=== PATIENT | female | born 1985 | race Caucasian/White ===

== ENCOUNTER 2021-11-03 10:47 | Observation (INO) | payer SELFPAY ==
[2021-11-03] MEDS ORDERED: CLINDAMYCIN 900 MG/50 ML 50 ML IV ONE (11:58)
[2021-11-03] MEDS ORDERED: LIDOCAINE 1%-EPI 1:100000 20 ML MDV SUBQ STA (11:58)
[2021-11-03] MEDS ORDERED: DEXAMETHASONE 10 MG/ML VIAL IVP STA (11:58)
--- NOTE | 2021-11-03 11:59 | ED Physician Documentation ---
PD HPI HEENT - Stated complaint Stated Complaint: RT FACE PX/SWELLING - Chief complaint Chief Complaint: Heent - History obtained from History obtained from: Patient - Additional information Additional information: Otherwise healthy 36-year-old woman has been dealing with a tooth infection. Went to dentist late last week and was started on Augmentin on Tuesday. Now with increased swelling and the dentist were advised her to come to the emergency department she is had some low-grade fevers but controlled with Tylenol and ibuprofen. Review of Systems Ten Systems: 10 systems reviewed and negative Constitutional: reports: Fever Nose: denies: Rhinorrhea / runny nose Throat: reports: Dental pain / toothache. denies: Sore throat PD PAST MEDICAL HISTORY - Allergies Allergies/Adverse Reactions: Allergies Allergy/AdvReac Type Severity Reaction Status Date / Time No Known Drug Allergies Allergy Verified 11/03/21 10:55 PD ED PE NORMAL - Vitals Vital signs reviewed: Yes - General General: Alert and oriented X 3, No acute distress - HEENT HEENT: PERRL, EOMI, Other (She has moderate trismus, can only open the mouth about 3 cm between incisors. The right mandibular second molar appears to be the infected tooth with an old filling and a an apparent gingival abscess and overlying facial cellulitis. There is no sublingual edema) - Neck Neck: Supple, no meningeal sign, No bony TTP - Cardiac Cardiac: RRR, No murmur - Respiratory Respiratory: No respiratory distress, Clear bilaterally - Abdomen Abdomen: Soft, Non tender - Back Back: No CVA TTP, No spinal TTP - Derm Derm: Normal color, Warm and dry - Extremities Extremities: No edema, No calf tenderness / cord - Neuro Neuro: Alert and oriented X 3, Normal speech Results - Vitals Vitals: Vital Signs - 24 hr 11/03/21 11/03/21 11/03/21 10:55 10:58 16:53 Temperature 37.1 C 37.1 C Heart Rate 96 96 82 Respiratory 18 18 17 Rate Blood Pressure 148/73 H 148/73 H 145/80 H O2 Saturation 100 100 99 Oxygen O2 Source Room air - Labs Labs: Laboratory Tests 11/03/21 11/03/21 11/03/21 13:16 13:16 13:16 WBC 8.5 RBC 4.19 L Hgb 12.1 Hct 36.5 L MCV 87.1 MCH 28.9 MCHC 33.2 RDW 13.4 Plt Count 270 MPV 10.3 Neut # (Auto) 6.9 H Lymph # (Auto) 1.0 L Lamb # (Auto) 0.5 Eos # (Auto) 0.0 Baso # (Auto) 0.0 Absolute Nucleated RBC 0.00 Nucleated RBC % 0.0 PT 15.4 H INR 1.4 H VBG pH VBG pCO2 VBG pO2 VBG HCO3 VBG Total CO2 VBG O2 Saturation VBG Base Excess Sodium 138 Potassium 4.1 Chloride 104 Carbon Dioxide 24 Anion Gap 10.0 BUN 9 Creatinine 0.6 Estimated GFR (MDRD) 113 Glucose 112 H Calcium 9.2 Serum HCG, Qual 11/03/21 11/03/21 13:16 13:16 WBC RBC Hgb Hct MCV MCH MCHC RDW Plt Count MPV Neut # (Auto) Lymph # (Auto) Lamb # (Auto) Eos # (Auto) Baso # (Auto) Absolute Nucleated RBC Nucleated RBC % PT INR VBG pH 7.378 VBG pCO2 44.5 VBG pO2 53.3 H VBG HCO3 25.6 VBG Total CO2 27.0 VBG O2 Saturation 87.9 H VBG Base Excess 0.2 Sodium Potassium Chloride Carbon Dioxide Anion Gap BUN Creatinine Estimated GFR (MDRD) Glucose Calcium Serum HCG, Qual NEGATIVE - Rads (name of study) CT Neck Radiology: EMP read contemporaneously Procedures - Abscess I&D (location) Dental, R mandible Preparation: Lidocaine 1% Incision: Incised with scalpel, Other (no pus) PD MEDICAL DECISION MAKING - ED course ED course: 36-year-old woman presents with what looks like early Noman's angina with some submandibular swelling and significant trismus related to an infected molar on the right mandible. She is nontoxic. I attempted an incision and drainage which she tolerated well, but no pus was identified from the lateral gumline. I called OMFS, Dr. Antonio Dawn and he will come see the patient in the department. He requested a CT after seeing the patient. This was done, my initial wet read shows a very large submandibular abscess measuring approximately 4 x 2 x 2 cm with airway deviation. I spoke with Dr. Dawn again who confirmed the patient needs urgent surgery but unfortunately we are now on surgical divert and he cannot take the patient to the operating room so a search for bed is begun. CT Neck Centered on the superior portion the right submandibular gland, there is a 2.0 x 4.9 x 2.5 cm fluid collection which does extend anteriorly along the right submandibular duct. No evidence of obstructing calculus.. There is a suggestion of enhancing capsule, and the hypopharynx is displaced to the left, but patent. Right vallecular sinus is effaced. Adjacent mandibular cortex is intact. There are multiple adjacent reactive appearing lymph nodes measuring up to 1.4 cm in diameter. Subsequently notified by the [facility] that it is likely that this patient will not be able to find a bed for the next 2 to 3 days. Unfortunately this is unacceptable given her diagnosis. I called Dr. Dawn again and asked if there was something he could do at the bedside was procedural sedation. Since the operating room is closed, but he felt that there was nothing he could do at the bedside even with sedation. We discussed the issue, and at this point we will continue to look for a bed but he will be able to take her to the OR tomorrow after the OR opens again. I discussed this with the patient, she has been very stable over the last 6 hours or so and she feels like she is actually a little better than when she got here with regards to her voice and phonation. Spoke with Dr. Colón for admission at 5:12 PM. Departure - Departure Disposition: [facility] DC/[facility] Clinical Impression: Ludwigs angina Condition: Serious
[2021-11-03 13:22] LABS: BASOPHILS % (AUTO) 0.4 %; EOSINOPHILS % (AUTO) 0.5 %; HCT - HEMATOCRIT 36.5 % (37.0-47.0); HGB - HEMOGLOBIN 12.1 g/dL (12.0-16.0); LYMPHOCYTES % (AUTO) 11.6 %; MEAN CORPUSCULAR HEMOGLOBIN 28.9 pg (27.0-31.0); MEAN CORPUSCULAR HGB CONC 33.2 g/dL (32.0-36.0); MEAN CORPUSCULAR VOLUME 87.1 fL (81.0-99.0); MEAN PLATELET VOLUME 10.3 fL (7.9-10.8); MONOCYTES # (AUTO) 0.5 10^3/uL (0.0-1.0); MONOCYTES % (AUTO) 5.9 %; NEUTROPHILS # (AUTO) 6.9 10^3/uL (1.5-6.6); NEUTROPHILS % (AUTO) 81.1 %; PLT - PLATELET COUNT 270 10^3/uL (130-450); RED BLOOD COUNT 4.19 10^6/uL (4.20-5.40); RED CELL DISTRIBUTION WIDTH 13.4 % (12.0-15.0); WHITE BLOOD COUNT 8.5 x10^3/uL (4.8-10.8)
[2021-11-03 13:25] LABS: VBG PCO2 44.5 mmHg (41-51); VBG PH 7.378 (7.31-7.41)
[2021-11-03 13:26] LABS: VBG BASE EXCESS 0.2 mmol/L (-2 - +2); VBG HCO3 25.6 mmol/L (23-28); VBG OXYGEN SATURATION 87.9 % (60-80); VBG PO2 53.3 mmHg (25-47)
[2021-11-03 13:28] LABS: INR 1.4 (0.8-1.2); PT - PROTHROMBIN TIME 15.4 secs (9.9-12.6)
[2021-11-03 13:32] LABS: CALCIUM 9.2 mg/dL (8.5-10.3); CREATININE 0.6 mg/dL (0.4-1.0); POTASSIUM 4.1 mmol/L (3.5-5.0)
[2021-11-03] MEDS ORDERED: IOVERSOL 320 100 ML VIAL IVP ONE ×2 (14:39→15:09)
[2021-11-03] MEDS ORDERED: ONDANSETRON 4 MG/2 ML VIAL IVP STA (15:05)
[2021-11-03 15:33] LABS: HCG,QUALITATIVE BLOOD NEGATIVE
--- NOTE | 2021-11-03 16:21 | CT Report ---
PROCEDURE: CT neck with contrast INDICATIONS: Dental infection, question Noman's CONTRAST: IV CONTRAST: Optiray 320 ml: 100 PO CONTRAST: *NO PO CONTRAST TECHNIQUE: After the administration of intravenous contrast, 3.0 mm axial sections acquired from the sella to th e aortic arch. 3 mm thick coronal reformats were generated. For radiation dose reduction, the follo wing was used: automated exposure control, adjustment of mA and/or kV according to patient size. COMPARISON: None. FINDINGS: Image quality: Excellent. Lymph nodes: As below Vessels: Visualized vasculature appears patent. Neck spaces: As below. The oropharynx, nasopharynx, and pharynx demonstrate no mucosal lesions. The vocal cords, false vocal cords, pyriform sinuses, epiglottis, and tongue base all appear normal. Ext ramucosal spaces appear unremarkable. Glands: Centered on the superior portion the right submandibular gland, there is a 2.0 x 4.9 x 2.5 cm fluid collection which does extend anteriorly along the right submandibular duct. No evidence of obs tructing calculus.. There is a suggestion of enhancing capsule, and the hypopharynx is displaced to t he left, but patent. Right vallecular sinus is effaced. Adjacent mandibular cortex is intact. There a re multiple adjacent reactive appearing lymph nodes measuring up to 1.4 cm in diameter. Miscellaneous: Visualized brain and orbits appear normal. Lung apices appear clear. Superficial so ft tissues appear normal. Bones: No suspicious bony lesions. Visualized sinuses and mastoids appear unremarkable. IMPRESSION: 1. Right-sided soft tissue partially encapsulated fluid collection is most consistent with an infecte d ranula arising from the right submandibular gland. Local reactive adenopathy present. Adjacent ehsan ibular cortex and dentition intact. Reviewed by: Maykel Villarreal MD on 11/03/2021 3:19 PM AKDT Approved by: Maykel Villarreal MD on 11/03/2021 3:19 PM AKDT Station ID: [id number]
[2021-11-03] MEDS ORDERED: AMPICILLIN/SULBACTAM 3 GM in SODIUM CHLORIDE 0.9% MINIBAG 100 ML IV STA (16:48)
[2021-11-03] MEDS ORDERED: ONDANSETRON ODT 4 MG TABLET TL PRN (17:13)
[2021-11-03] MEDS ORDERED: SODIUM CHLORIDE FLUSH 0.9% 10 ML SYRINGE IVP PRN (17:13)
[2021-11-03] MEDS ORDERED: oxyCODONE 5 MG TABLET PO PRN (17:13)
[2021-11-03] MEDS ORDERED: HYDROmorphone 0.5 MG/0.5 ML SYRINGE IVP PRN (17:13)
--- NOTE | 2021-11-03 17:55 | HISTORY & PHYSICAL EXAMINATION ---
Chief Complaint - Chief Complaint Chief Complaint: facial swelling History of Present Illness - Admitted From Admitted From:: ED - History Obtained From Records Reviewed: Medical record History obtained from: patient - History of Present Illness HPI Comment/Other: A 36 year old patient with no significant medical history presents for facial swelling after a dental infection that began 6 days ago. The patient was eating when she felt her tooth crack (right lower molar, second from back). She was treated with antibiotics 4 days ago, but her face continued to swell. She reports swelling and pain that is worse on the right side and under her chin. She reports dysphagia, fever, chills, and cough due to throat irritation, with nausea and vomiting prior to the start of antibiotics. She has had a mostly liquid diet due to pain and difficulty swallowing and reports losing 7 lbs since the start of this event. She denies difficulty breathing. She has been using tylenol and ibuprofen for pain and fevers. 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 4 children, all healthy Living arrangement: At home Living Situation: With spouse/s.o. Social History Notes: Moved from [place] in January with . 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 No alcohol abuse or reactionational substance use. Never smoked. lives with and 5 kids (one child from 's prior marriage). Uninsured. - Substance History Use: Uses substance without health or social issues: NONE Abuse: Recurrent use of substance despite neg consequences: NONE Dependence: Experiences withdrawal or developed tolerances: NONE Meds/Allgy - Allergies Allergies/Adverse Reactions: Allergies Allergy/AdvReac Type Severity Reaction Status Date / Time No Known Drug Allergies Allergy Verified 11/03/21 10:55 Review of Systems - Constitutional Constitutional: reports: Fever, Chills, Poor appetite, Weight loss - Ears, Nose & Throat Ears, Nose & Throat: reports: Sore throat - Cardiovascular Cariovascular: reports: Irregular heart rate. denies: Chest pain - Respiratory Respiratory: reports: Cough. denies: Sputum production, Wheezing - Gastrointestinal Gastrointestinal: reports: Nausea, Vomiting. denies: Abdominal pain, Abdominal distention, Constipation, Diarrhea - Musculoskeletal Musculoskeletal: reports: Muscle aches - Integumentary Integumentary: denies: Rash - Neurological Neurological: denies: Headache - Other Findings Other Findings: All other ROS reviewed and negative. Prior Level of Functionality: Independent Exam - Vital Signs Reviewed Vital Signs: Yes Vital Signs: Vital Signs x48h Temp Pulse Resp BP Pulse Ox 11/03/21 16:53 82 17 145/80 H 99 11/03/21 10:58 37.1 C 96 18 148/73 H 100 11/03/21 10:55 37.1 C 96 18 148/73 H 100 - Physical Exam General Appearance: positive: No acute distress, Alert Eyes Bilateral: positive: Normal inspection, No lid inflammation, No scleral icterus Neck: positive: Lymphadenopathy (L), Other (Swelling around right jaw and neck without skin erythema. Cannot open mouth wide enough to visualize pharynx due to extensive swelling.) Respiratory: positive: No respiratory distress, Breath sounds nml Cardiovascular: positive: Regular rate & rhythm, No murmur, No gallop. negative: Irregularly irregular, Tachycardia, Bradycardia, JVD present, Systolic murmur, Diastolic murmur, Gallop/S4 Peripheral Pulses: positive: 2+ Abdomen: positive: Non-tender, No distention. negative: Guarding, Rebound Skin: positive: Color nml, No rash, Warm, Dry. negative: Diaphoresis Neurologic/Psychiatric: positive: Oriented x3, Mood/affect nml Conclusion/Plan - Problem List (1) Ludwigs angina Conclusion/Plan: 36 year old healthy female presents with Noamn angina secondary to a dental infection. The dental infection began 6 days ago after the patient felt her tooth crack while eating. She was treated with antibiotics 4 days ago, but the infection was not treated. She presents today with right sided facial and submandibular swelling. She reports pain, inflammation, dysphagia, fever, chills, nausea, and vomiting. She denies difficulty breathing and productive cough. A head/neck CT confirms Noman angina. On physical exam, there is exte nsive swelling of the face and neck. The patient does not appear to be in respiratory distress. The patient was notified that this is a surgical emergency, though there are no surgical services available due to staffing at this time. Multiple hospitals were contacted in an attempt to transfer care, but no beds are available. The patient was transferred from the emergency department to med/surg and will be sent to the operating room tomorrow morning. Oral maxillofacial surgery is prepared for the patient. IV ampicillin-sulbactam has been administered and the patient will be kept in an upright position through the night. She will be closely monitored for status changes but is currently stable. (2) Blood glucose elevated Conclusion/Plan: Patient has a mildly elevated blood glucose. She has no history of diabetes. Elevation may be due to physiologic stress related to infection. HbA1c will be checked in the morning. Glucose will be monitored during the hospital stay and the patient will be encouraged to follow up with primary care if blood glucose or A1c is elevated. - Lab Results Fish Bones: 11/03/21 13:16 11/03/21 13:16 - Diagnostic Imaging Results Diagnostic Imaging Results: positive: Final report reviewed Core Measures - Anticipated LOS I expect patient to be DC'd or transferred within 96 hours.: Yes - DVT/VTE - Prophylaxis VTE/DVT Device ordered at admit?: Yes
[2021-11-03] MEDS: SODIUM CHLORIDE 0.9% 1,000 ML IV SCH (18:14)
[2021-11-03] MEDS: ACETAMINOPHEN 325 MG TABLET PO PRN (18:42)
--- NOTE | 2021-11-03 21:54 | CONSULTATION NOTE ---
Referring Provider Name of Referring Provider:: Shant Herrera Consult Date: 11/03/21 Chief Complaint - Chief Complaint Chief Complaint: Throat swelling History of Present Illness - Admitted From Admitted From:: ER - History Obtained From History obtained from: Patient - History of Present Illness HPI Comment/Other: 36 yo F w/ 1 wk of progressive swelling of the R submandibular region. She has been on amoxicillin for three days and the swelling has continued to worsen. Today she came to the ER and OMFS was consulted for evaluation and management of her swelling. History - Past Medical History Cardiovascular: reports: None Respiratory: reports: None Neuro: reports: None Endocrine/Autoimmune: reports: None GI: reports: None SALVATIONIST: reports: Other () : reports: None HEENT: reports: None Psych: reports: None Musculoskeletal: reports: None Derm: reports: None - Past Surgical History General: reports: Appendectomy /SALVATIONIST: reports: Dilation and currettage, Oophrectomy - Family & Social History Family History: Mother: (Pt reports mother at 47 from heart failure due to poor overall health, bipolar), Father: Alive and Well Family History Comment/Other: 9 siblings, all healthy. 4 children, all healthy Living arrangement: At home Living Situation: With spouse/s.o. Social History Notes: Moved from [place] in January with . 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 No alcohol abuse or reactionational substance use. Never smoked. lives with and 5 kids (one child from 's prior marriage). Uninsured. - Substance History Use: Uses substance without health or social issues: NONE Abuse: Recurrent use of substance despite neg consequences: NONE Dependence: Experiences withdrawal or developed tolerances: NONE Meds/Allgy - Allergies Allergies/Adverse Reactions: Allergies Allergy/AdvReac Type Severity Reaction Status Date / Time No Known Drug Allergies Allergy Verified 11/03/21 10:55 Review of Systems - Constitutional Constitutional: reports: Fever (101.0 F) - Eyes Eyes: denies: Blurred vision - Ears, Nose & Throat Ears, Nose & Throat: denies: Ear pain, Hearing loss - Cardiovascular Cariovascular: denies: Irregular heart rate, Palpitations, Chest pain - Respiratory Respiratory: denies: Cough, Wheezing, Stridor - Gastrointestinal Gastrointestinal: denies: Abdominal pain - Neurological Neurological: denies: Numbness - Other Findings Other Findings: Endorses: Globus, dysphagia, odynophagia, trismus, tooth pain, purulent drainage around tooth #30, fever, chills Denies: dyspnea, altered voice 14 systems were reviewed and otherwise negative Exam - Vital Signs Vital Signs: Vital Signs x48h Temp Pulse Pulse Resp BP BP Pulse Ox 11/03/21 21:14 36.8 C 88 24 136/75 H 96 11/03/21 19:24 98 11/03/21 18:23 36.7 C 76 16 143/84 H 97 11/03/21 18:00 80 18 144/70 H 98 11/03/21 16:53 82 17 145/80 H 99 - Physical Exam General Appearance: positive: No acute distress, Alert Eyes Bilateral: positive: PERRL, EOMI ENT: positive: Other (COURTNEY 20mm. Moderate R FOM edema w/out tongue elevation. Uvula cannot be visualized. Swelling buccal to tooth #30. Tooth #30 decayed and tender.) Neck: positive: Other (Indurated swelling of the R buccal and submandibular spp, extending over to the L w/ softer swelling. R inferior border of the mandible is not palpable. There is no swelling or ttp of the R temporalis. The swelling extends inferiorly to the level of the thyroid cartilage.) Respiratory: positive: Chest non-tender, No respiratory distress Cardiovascular: positive: Regular rate & rhythm Peripheral Pulses: positive: 2+ Abdomen: positive: Non-tender, No distention Skin: positive: Other (erythema over the R neck otherwise normal) Extremities: positive: Non-tender, Full ROM Neurologic/Psychiatric: positive: Oriented x3, CN's nml (2-12) (No R V3 parasthesia) Conclusion and Plan - Lab Results Laboratory Results 11/03/21 17:15: SARS-CoV-2 (PCR) NOT DETECTED 11/03/21 13:16: Serum HCG, Qual NEGATIVE 11/03/21 13:16: VBG pH 7.378, VBG pCO2 44.5, VBG pO2 53.3 H, VBG HCO3 25.6, VBG Total CO2 27.0, VBG O2 Saturation 87.9 H, VBG Base Excess 0.2 11/03/21 13:16: Sodium 138, Potassium 4.1, Chloride 104, Carbon Dioxide 24, Anion Gap 10.0, BUN 9, Creatinine 0.6, Estimated GFR (MDRD) 113, Glucose 112 H, Calcium 9.2 11/03/21 13:16: PT 15.4 H, INR 1.4 H 11/03/21 13:16: WBC 8.5, RBC 4.19 L, Hgb 12.1, Hct 36.5 L, MCV 87.1, MCH 28.9, MCHC 33.2, RDW 13.4, Plt Count 270, MPV 10.3, Neut # (Auto) 6.9 H, Lymph # (Auto) 1.0 L, Weld # (Auto) 0.5, Eos # (Auto) 0.0, Baso # (Auto) 0.0, Absolute Nucleated RBC 0.00, Nucleated RBC % 0.0 - Diagnostic Imaging Results Diagnostic Imaging Results Comments: Therfe was a ct soft tissue neck taken today after I saw the patient. I haven't been able to review the report yet. Examination and history of the patient were consistent with abscess of dental origin, likely related to necrotic tooth #30. The read, however, states that the swelling is most consistent with a fluid collection from an infected ranula, but does state that there is no visible obstructing calculus. The fluid collection size is 5 cm at its greatest dimmension. The single view of the film I was able to see in a text message reveals significant deviation of the airway to the L - Diagnosis Diagnosis: R submandibular space abscess - Consultation Note Consultation Note: 36 yo F w/ R submandibular, buccal, and sublingual spp abscess in the setting of painful and necrotic tooth #30. - unclear etiology of the swelling at this time. Ranula vs dental. - no leukocytosis - she measured her fever at home at 101 F - Plan Plan: We anticipate incision and drainage of the R buccal, sumandibular, sublingual spaces with removal of necrotic tooth #30. Under normal circumstances this would be accomplished immediately, however, there is no available staff for the OR because of staffing shortages due to several staff having COVID. It was then decided to transfer the patient. She could not be transferred because no hospitals were receive her. She will remain in house and we will operate the abscess as soon as possible. - Unasyn 3g q6h - am cbc w/ dif - NPO after midnight Please call me if she develops worsening airway distress. At the time this note was written she had already been admitted to the floor and reported feeling better than she had in two or three days, likely because of the IV dexamethasone she received. Antonio Dawn, [facility] [phone]
[2021-11-04] MEDS: SODIUM CHLORIDE FLUSH 0.9% 10 ML SYRINGE IVP SCH ×3 (00:04→17:18)
[2021-11-04] MEDS: AMPICILLIN/SULBACTAM 3 GM in SODIUM CHLORIDE 0.9% MINIBAG 100 ML IV SCH ×4 (00:04→18:11)
[2021-11-04] MEDS: ACETAMINOPHEN 325 MG TABLET PO PRN ×2 (00:05→05:02)
[2021-11-04] MEDS: IBUPROFEN 600 MG TABLET PO SCH ×4 (00:05→18:13)
[2021-11-04] MEDS: SODIUM CHLORIDE 0.9% 1,000 ML IV SCH ×2 (04:05→17:29)
[2021-11-04 05:20] LABS: BASOPHILS % (AUTO) 0.2 %; HCT - HEMATOCRIT 33.8 % (37.0-47.0); HGB - HEMOGLOBIN 11.1 g/dL (12.0-16.0); LYMPHOCYTES % (AUTO) 10.4 %; MEAN CORPUSCULAR HEMOGLOBIN 28.8 pg (27.0-31.0); MEAN CORPUSCULAR HGB CONC 32.8 g/dL (32.0-36.0); MEAN CORPUSCULAR VOLUME 87.6 fL (81.0-99.0); MEAN PLATELET VOLUME 10.5 fL (7.9-10.8); MONOCYTES # (AUTO) 0.5 10^3/uL (0.0-1.0); MONOCYTES % (AUTO) 4.7 %; NEUTROPHILS # (AUTO) 8.2 10^3/uL (1.5-6.6); NEUTROPHILS % (AUTO) 84.3 %; PLT - PLATELET COUNT 300 10^3/uL (130-450); RED BLOOD COUNT 3.86 10^6/uL (4.20-5.40); RED CELL DISTRIBUTION WIDTH 13.6 % (12.0-15.0); WHITE BLOOD COUNT 9.7 x10^3/uL (4.8-10.8)
[2021-11-04 05:27] LABS: CALCIUM 8.7 mg/dL (8.5-10.3); CREATININE 0.6 mg/dL (0.4-1.0); POTASSIUM 4.1 mmol/L (3.5-5.0)
--- NOTE | 2021-11-04 10:46 | ANESTHESIA ---
Pre-Anesthesia VS, & Labs - Diagnosis Diagnosis R submandibular space abscess - Procedure Incision and drainage right submandibular abscess Vital Signs: Temp Pulse Resp BP Pulse Ox 36.4 C L 77 16 128/65 96 11/04/21 08:00 11/04/21 08:00 11/04/21 08:00 11/04/21 08:00 11/04/21 10:00 Height: 5 ft 3 in Weight (kg): 84 kg Body Mass Index: 32.8 BMI Classification: Obese - NPO >8 hours - Is Patient ?: No - Lab Results Current Lab Results: Laboratory Tests 11/04/21 04:50: Sodium 139, Potassium 4.1, Chloride 106, Carbon Dioxide 23, Anion Gap 10.0, BUN 12, Creatinine 0.6, Estimated GFR (MDRD) 113, Glucose 123 H, Calcium 8.7 11/04/21 04:50: WBC 9.7, RBC 3.86 L, Hgb 11.1 L, Hct 33.8 L, MCV 87.6, MCH 28.8, MCHC 32.8, RDW 13.6, Plt Count 300, MPV 10.5, Neut # (Auto) 8.2 H, Lymph # (Auto) 1.0 L, [place] # (Auto) 0.5, Eos # (Auto) 0.0, Baso # (Auto) 0.0, Absolute Nucleated RBC 0.00, Nucleated RBC % 0.0 11/03/21 13:16: Serum HCG, Qual NEGATIVE 11/03/21 13:16: VBG pH 7.378, VBG pCO2 44.5, VBG pO2 53.3 H, VBG HCO3 25.6, VBG Total CO2 27.0, VBG O2 Saturation 87.9 H, VBG Base Excess 0.2 11/03/21 13:16: Sodium 138, Potassium 4.1, Chloride 104, Carbon Dioxide 24, Anion Gap 10.0, BUN 9, Creatinine 0.6, Estimated GFR (MDRD) 113, Glucose 112 H, Calcium 9.2 11/03/21 13:16: PT 15.4 H, INR 1.4 H 11/03/21 13:16: WBC 8.5, RBC 4.19 L, Hgb 12.1, Hct 36.5 L, MCV 87.1, MCH 28.9, MCHC 33.2, RDW 13.4, Plt Count 270, MPV 10.3, Neut # (Auto) 6.9 H, Lymph # (Aut o) 1.0 L, [place] # (Auto) 0.5, Eos # (Auto) 0.0, Baso # (Auto) 0.0, Absolute Nucleated RBC 0.00, Nucleated RBC % 0.0 Fish Bones: 11/04/21 04:50 11/04/21 04:50 Home Medications and Allergies Active Medications Acetaminophen (Acetaminophen 325 Mg Tablet) 650 mg PO Q4HR PRN PRN Reason: Pain 1 to 4, or Fever Last Admin: 11/04/21 05:02 Dose: 650 mg Hydromorphone HCl (Hydromorphone 0.5 Mg/0.5 Ml Syringe) 0.5 mg IVP Q2H PRN PRN Reason: Pain 8 to 10 Sodium Chloride (Normal Saline 0.9%) 1,000 mls @ 100 mls/hr IV .Q10H [facility] Last Admin: 11/04/21 04:05 Dose: 100 mls/hr Ampicillin Sodium/Sulbactam (Sodium 3 gm/ Sodium Chloride) 100 mls @ 200 mls/hr IV Q6HR [facility] Last Infusion: 11/04/21 05:37 Dose: Infused Ibuprofen (Ibuprofen 600 Mg Tablet) 600 mg PO Q6HR [facility] Last Admin: 11/04/21 05:02 Dose: 600 mg Ondansetron HCl (Ondansetron Odt 4 Mg Tablet) 4 mg TL Q6HR PRN PRN Reason: Nausea / Vomiting Oxycodone HCl (Oxycodone 5 Mg Tablet) 5 mg PO Q4HR PRN PRN Reason: Pain 5 to 7 Saccharomyces Boulardii (Saccharomyces Boulardii 250 Mg Capsule) 250 mg PO BIDWM [facility] Sodium Chloride (Sodium Chloride Flush 0.9% 10 Ml Syringe) 10 ml IVP PRN PRN PRN Reason: NEEDED PER PROVIDER ORDERS Last Admin: 11/03/21 18:14 Dose: 10 ml Sodium Chloride (Sodium Chloride Flush 0.9% 10 Ml Syringe) 10 ml IVP 0100,0900,1700 [facility] Last Admin: 11/04/21 10:32 Dose: 10 ml Allergies/Adverse Reactions: Allergies Allergy/AdvReac Type Severity Reaction Status Date / Time No Known Drug Allergies Allergy Verified 11/03/21 10:55 Anes History & Medical History - Anesthetic History Anesthesia Complications: reports: No previous complications - Medical History Cardiovascular: reports: None Pulmonary: reports: None Gastrointestinal: reports: None Urinary: reports: None Neuro: reports: None Musculoskeletal: reports: None Endocrine/Autoimmune: reports: None Skin: reports: None Smoking Status: Never smoker History of Cancer?: No - Surgical History General: reports: Appendectomy Gynecologic: reports: Dilation and currettage, Oophrectomy Exam General: Alert, Oriented x3 Dental: Other (tooth 30 infection) Mouth Openin Fingerbreadth (states can open only about half as much as n ormally due to pain/stiffness with dental infection) Neck Mobility: Reduced Mallampati classification: III Thyromental Distance: greater than 6 cm Respiratory: Lungs clear Cardiovascular: Regular rate, Normal S1, Normal S2 Plan Anesthesia Type: General Consent for Procedure(s) Verified and Reviewed: Yes Code Status: Attempt Resuscitation ASA classification: 2-Mild systemic disease Is this case an emergency?: No
[2021-11-04] MEDS ORDERED: MIDAZOLAM 2 MG/2 ML VIAL ONE (11:21)
[2021-11-04] MEDS ORDERED: fentaNYL 100 MCG/2 ML VIAL ONE ×2 (11:21→13:41)
[2021-11-04 11:37] LABS: ESTIMATED AVERAGE GLUCOSE 111 mg/dL (70-100); HEMOGLOBIN A1c% 5.5 % (4.27-6.07)
[2021-11-04] MEDS ORDERED: BUPIVACAINE 0.5% PF 30 ML VIAL ONE (11:41)
[2021-11-04] MEDS ORDERED: LIDOCAINE-MPF 0.5% 50 ML VIAL ONE (11:54)
[2021-11-04] MEDS ORDERED: CHLORHEXIDINE GLUCONATE 15 ML UDC PO ONE (12:25)
[2021-11-04] MEDS ORDERED: LIDOCAINE-MPF 2% 5 ML VIAL ONE (13:06)
[2021-11-04] MEDS ORDERED: DEXAMETHASONE 4 MG/ML VIAL ONE (13:18)
[2021-11-04] MEDS ORDERED: ONDANSETRON 4 MG/2 ML VIAL ONE (13:18)
[2021-11-04] MEDS ORDERED: LIDOCAINE 2%-EPI 1:100000 20 ML MDV SUBQ ONE (13:24)
[2021-11-04] MEDS ORDERED: LIDOCAINE 2%-EPI 1:100000 20 ML MDV ONE (13:25)
[2021-11-04] MEDS ORDERED: ACETAMINOPHEN 1,000 MG/100 ML 100 ML IV ONE (13:50)
--- NOTE | 2021-11-04 13:52 | OPERATIVE REPORT ---
Operative Report - General Admit Date: 11/03/21 Procedure Date: 11/04/21 Planned Procedure: I&D of the R submandibular and buccal spaces with removal of tooth #30 Pre-Op Diagnosis: Abscess of the R submandibular, sublingual spp 2/2 necrotic tooth #30 Procedure Performed: 1. Incision and drainage of the R submandibular, buccal, sublingual, and lateral pharyngeal spaces via intraoral and extraoral incisions. 2. Removal of tooth #30 Post Op Diagnosis: Abscess of the R submandibular, sublingual, and lateral pharyngeal spp - Procedure Note Primary Surgeon: Antonio Dawn DDS Anesthesia Provider: Sade Alcazar Anesthesia Technique: General ET tube IV Fluids (mL): 150 Estimated Blood Loss (mL): 25 Drain/Tube Type: [place] (1/4 inch in the R neck held in place w/ a single silk suture) Indications: 36 yo F w/ R neck swelling, pain, and dyphagia. Clinical and radiographic exam was consistent with abscess of the R lateral pharyngeal, submandibular, sublingual, and buccal spaces secondary to necrotic tooth #30. It was decided that removal of the tooth was necessary, as well and incision and drainage of the involved spaces. The RBAs of this procedure were discussed w/ the patient, including pain, swelling, bleeding, scarring, paralysis of the facial nerve, parasthesia, prolonged intubation, recurrence of the infection, need for further surgery, need for tracheotomy. Adequate time was given to answer all questions and informed consent was obtained. Findings: The patient was brought to the [facility] and placed in a supine position on the operating table. General anesthesia was induced by the anesthesia team and airway was secured w/ an endotracheal tube taped to the left side of the mouth. All pressure points were padded and checked. The eyes were protected with tegederms. The patient was prepped and draped in the standard fashion for I&D of the neck and mouth. A throat pack was placed. Local anesthesia was obtained with 2% lidocaine w/ epinephrine x 7 cc. A formal timeout was executed. Attention was directed intraorally to site #30. A bite block was placed. Crestal incision. Buccal full thickness flap. Moderate purulence encountered. Tooth removed w/ forceps. Site curetted and irrigated. Attn directed to the R neck. 1.5 cm incision placed in a fold of the neck. Incision down to platysma. Bluntly dissected after reaching the platysma to avoid the MM branch. Used a curved sandy to find the inferior border of the mandible. Directed the sandy laterally and then mesially. Expanded the space with blunt dissection and encountered a large amount of purulence. Used digital dissection to explore all aspects of the abscess. Continued to encounter a very large amount of purulence, especially from the lateral pharyngeal space. Used a bulb syringe and a red rubber catheter to irrigate the site copiously. Placed a 1/4 inch kerrie and secured it to the neck with a single silk suture. Dressed the wound. Suctioned out the mouth. Removed the throat pack. Placed gauze over the intraoral wound to aid in hemostasis. Care of the patient was returned to the anesthesia team. The patient was extubated uneventfully and could breathe easily. She was taken to the PACU in stable condition. Complications: None
[2021-11-04] MEDS ORDERED: SUGAMMADEX 200 MG/2 ML VIAL IVP ONE (13:53)
[2021-11-04] MEDS ORDERED: LACTATED RINGERS 500 ML IV ONE (13:54)
[2021-11-04] MEDS ORDERED: HYDROmorphone 0.5 MG/0.5 ML SYRINGE ONE (14:26)
[2021-11-04] MEDS ORDERED: NALOXONE 0.4 MG/ML VIAL IVP PRN (14:32)
[2021-11-04] MEDS ORDERED: ONDANSETRON 4 MG/2 ML VIAL IVP PRN (14:32)
[2021-11-04] MEDS ORDERED: HYDROmorphone 0.5 MG/0.5 ML SYRINGE IVP PRN (14:32)
[2021-11-04] MEDS ORDERED: fentaNYL 100 MCG/2 ML VIAL IVP PRN (14:32)
[2021-11-04] MEDS ORDERED: ePHEDrine 50 MG/ML VIAL IVP PRN (14:32)
[2021-11-04] MEDS ORDERED: ATROPINE ABBOJECT 1 MG/10 ML SYRINGE IVP PRN (14:32)
[2021-11-04] MEDS ORDERED: MORPHINE 2 MG/ML CARPUJECT IVP PRN (14:32)
[2021-11-04] MEDS ORDERED: METOCLOPRAMIDE 10 MG/2 ML VIAL IVP PRN (14:32)
[2021-11-04] MEDS ORDERED: LACTATED RINGERS 1,000 ML IV SCH (15:00)
--- NOTE | 2021-11-04 15:28 | ANESTHESIA POST OP EVALUATION ---
Anesthesia Post Eval - Post Anesthesia Eval Vitals: Last Vital Signs Temp 36.9 C 11/04/21 14:47 Pulse 67 11/04/21 14:57 Resp 18 11/04/21 14:57 BP 163/78 H 11/04/21 14:57 Pulse Ox 96 11/04/21 14:57 CV Function Including HR & BP: Stable Pain Control: Satisfactory Nausea & Vomiting: Negative Mental Status: Baseline Respiratory Status: Airway Patent Hydration Status: Satisfactory Anesthesia Complications: None
--- NOTE | 2021-11-04 16:45 | PROVIDER PROGRESS NOTE ---
Subjective - Prog Note Date Prog Note Date: 11/04/21 Prog Note Time: 04:30 - Subjective Subjective: Patient was taken to the OR today at 1200 for incision and drainage of submandibular abscess. Prior to OR, the patient reported feeling better this morning with less pain and swelling than in the prior days. She was continued on ampicillin-sulbactam until OR time. A large volume of purulence was drained from the abscess and a kerrie drain was placed in the surgical site. The patient was transferred to the PACU and has been stable since the procedure. Current Medications - Current Medications Current Medications: Active Medications Acetaminophen (Acetaminophen 325 Mg Tablet) 650 mg PO Q4HR PRN PRN Reason: Pain 1 to 4, or Fever Last Admin: 11/04/21 05:02 Dose: 650 mg Hydromorphone HCl (Hydromorphone 0.5 Mg/0.5 Ml Syringe) 0.5 mg IVP Q2H PRN PRN Reason: Pain 8 to 10 Last Admin: 11/04/21 15:35 Dose: 0.5 mg Sodium Chloride (Normal Saline 0.9%) 1,000 mls @ 100 mls/hr IV .Q10H [facility] Last Infusion: 11/04/21 14:50 Dose: 100 mls/hr Ampicillin Sodium/Sulbactam (Sodium 3 gm/ Sodium Chloride) 100 mls @ 200 mls/hr IV Q6HR [facility] Last Infusion: 11/04/21 12:29 Dose: Infused Ibuprofen (Ibuprofen 600 Mg Tablet) 600 mg PO Q6HR [facility] Last Admin: 11/04/21 11:47 Dose: 600 mg Ondansetron HCl (Ondansetron Odt 4 Mg Tablet) 4 mg TL Q6HR PRN PRN Reason: Nausea / Vomiting Oxycodone HCl (Oxycodone 5 Mg Tablet) 5 mg PO Q4HR PRN PRN Reason: Pain 5 to 7 Saccharomyces Boulardii (Saccharomyces Boulardii 250 Mg Capsule) 250 mg PO BIDWM [facility] Sodium Chloride (Sodium Chloride Flush 0.9% 10 Ml Syringe) 10 ml IVP PRN PRN PRN Reason: NEEDED PER PROVIDER ORDERS Last Admin: 11/03/21 18:14 Dose: 10 ml Sodium Chloride (Sodium Chloride Flush 0.9% 10 Ml Syringe) 10 ml IVP 0100,0900,1700 [facility] Last Admin: 11/04/21 10:32 Dose: 10 ml Objective - Vital Signs/Intake & Output Reviewed Vital Signs: Yes Vital Signs: Vital Signs x48h Temp Pulse Pulse Resp BP BP Pulse Ox 11/04/21 16:21 18 149/74 H 98 11/04/21 15:30 76 18 155/83 H 98 11/04/21 15:27 71 18 160/85 H 98 11/04/21 14:57 67 18 163/78 H 96 11/04/21 14:52 70 18 152/90 H 96 11/04/21 14:47 36.9 C 66 18 157/91 H 96 11/04/21 14:33 61 17 151/77 H 97 11/04/21 14:23 36.5 C 63 17 138/79 H 95 11/04/21 14:19 63 15 153/82 H 98 11/04/21 14:05 36.5 C 76 19 149/83 H 100 11/04/21 13:54 36.6 C 90 18 148/81 H 100 11/04/21 10:00 96 Intake & Output: Intake & Output 11/01/21 11/02/21 11/03/21 11/04/21 23:59 23:59 23:59 23:59 Intake Total 690 2126.667 Balance 690 2126.667 - Objective General Appearance: positive: No acute distress, Anxious ENT: positive: Other (Cannot assess pharynx due to swelling.) Neck: positive: No JVD, Other (Swelling around right jaw and neck without erythema.) Respiratory: positive: No respiratory distress Cardiovascular: negative: Irregularly irregular, Tachycardia, Bradycardia, JVD present Skin: positive: Color nml, No rash, Warm, Dry. negative: Cyanosis, Diaphoresis Neurologic/Psychiatric: positive: Oriented x3 - Lab Results Fish Bones: 11/04/21 04:50 11/04/21 04:50 Other Labs: Lab Results x24hrs 11/04/21 11/04/21 11/04/21 Range/Units 04:50 04:50 04:50 WBC 9.7 (4.8-10.8) x10^3/uL RBC 3.86 L (4.20-5.40) 10^6/uL Hgb 11.1 L (12.0-16.0) g/dL Hct 33.8 L (37.0-47.0) % MCV 87.6 (81.0-99.0) fL MCH 28.8 (27.0-31.0) pg MCHC 32.8 (32.0-36.0) g/dL RDW 13.6 (12.0-15.0) % Plt Count 300 (130-450) 10^3/uL MPV 10.5 (7.9-10.8) fL Neut # (Auto) 8.2 H (1.5-6.6) 10^3/uL Lymph # (Auto) 1.0 L (1.5-3.5) 10^3/uL [place] # (Auto) 0.5 (0.0-1.0) 10^3/uL Eos # (Auto) 0.0 (0.0-0.7) 10^3/uL Baso # (Auto) 0.0 (0.0-0.1) 10^3/uL Absolute Nucleated RBC 0.00 x10^3/uL Nucleated RBC % 0.0 /100WBC Sodium 139 (135-145) mmol/L Potassium 4.1 (3.5-5.0) mmol/L Chloride 106 (101-111) mmol/L Carbon Dioxide 23 (21-32) mmol/L Anion Gap 10.0 (6-13) BUN 12 (6-20) mg/dL Creatinine 0.6 (0.4-1.0) mg/dL Estimated GFR (MDRD) 113 (>89) Glucose 123 H (70-100) mg/dL Estimat Average Glucose 111 H (70-100) mg/dL Hemoglobin A1c % 5.5 (4.27-6.07) % Calcium 8.7 (8.5-10.3) mg/dL SARS-CoV-2 (PCR) 11/03/21 Range/Units 17:15 WBC (4.8-10.8) x10^3/uL RBC (4.20-5.40) 10^6/uL Hgb (12.0-16.0) g/dL Hct (37.0-47.0) % MCV (81.0-99.0) fL MCH (27.0-31.0) pg MCHC (32.0-36.0) g/dL RDW (12.0-15.0) % Plt Count (130-450) 10^3/uL MPV (7.9-10.8) fL Neut # (Auto) (1.5-6.6) 10^3/uL Lymph # (Auto) (1.5-3.5) 10^3/uL [place] # (Auto) (0.0-1.0) 10^3/uL Eos # (Auto) (0.0-0.7) 10^3/uL Baso # (Auto) (0.0-0.1) 10^3/uL Absolute Nucleated RBC x10^3/uL Nucleated RBC % /100WBC Sodium (135-145) mmol/L Potassium (3.5-5.0) mmol/L Chloride (101-111) mmol/L Carbon Dioxide (21-32) mmol/L Anion Gap (6-13) BUN (6-20) mg/dL Creatinine (0.4-1.0) mg/dL Estimated GFR (MDRD) (>89) Glucose (70-100) mg/dL Estimat Average Glucose (70-100) mg/dL Hemoglobin A1c % (4.27-6.07) % Calcium (8.5-10.3) mg/dL SARS-CoV-2 (PCR) NOT DETECTED ABX Reporting Has patient been on IV antibiotics over the past 48 hours?: Yes Sepsis Event Note (H) - Evaluation Current Stage of Sepsis: Ruled out Assessment/Plan - Problem List (1) Ludwigs angina Impression: Patient travelled to the OR for I&D of submandibular abscess this afternoon. The abscess was drained and a surgical drain was placed at the incision site. 30th tooth was extracted as it was the source of the initial infection. Care was transferred to med/surg since surgeon will be off service this evening. IV am picillin-sulbactam was discontinued and PO Augmentin will be started. The patient will be discharged following surgical drain removal tomorrow morning. She will be monitored throughout the night for signs of sepsis and clinical decline. (2) Blood glucose elevated Impression: Blood glucose was elevated again today, though A1c was 5.5%. Patient will be encouraged to follow up with primary care for future monitoring.
[2021-11-04] MEDS: SACCHAROMYCES BOULARDII 250 MG CAPSULE PO SCH (17:29)
[2021-11-05] MEDS: AMPICILLIN/SULBACTAM 3 GM in SODIUM CHLORIDE 0.9% MINIBAG 100 ML IV SCH ×2 (00:02→05:34)
[2021-11-05] MEDS: IBUPROFEN 600 MG TABLET PO SCH ×2 (00:02→05:34)
[2021-11-05] MEDS: SODIUM CHLORIDE FLUSH 0.9% 10 ML SYRINGE IVP SCH ×2 (01:58→07:42)
[2021-11-05] MEDS: SODIUM CHLORIDE 0.9% 1,000 ML IV SCH (04:49)
[2021-11-05 07:29] LABS: CALCIUM 8.2 mg/dL (8.5-10.3); CREATININE 0.7 mg/dL (0.4-1.0); POTASSIUM 4.1 mmol/L (3.5-5.0)
[2021-11-05 07:33] LABS: BASOPHILS % (AUTO) 0.2 %; EOSINOPHILS % (AUTO) 0.1 %; HGB - HEMOGLOBIN 10.3 g/dL (12.0-16.0); LYMPHOCYTES # (AUTO) 2.1 10^3/uL (1.5-3.5); LYMPHOCYTES % (AUTO) 19.4 %; MEAN CORPUSCULAR HGB CONC 32.2 g/dL (32.0-36.0); MEAN CORPUSCULAR VOLUME 90.1 fL (81.0-99.0); MEAN PLATELET VOLUME 10.4 fL (7.9-10.8); MONOCYTES # (AUTO) 0.5 10^3/uL (0.0-1.0); MONOCYTES % (AUTO) 5.1 %; NEUTROPHILS # (AUTO) 7.9 10^3/uL (1.5-6.6); NEUTROPHILS % (AUTO) 73.5 %; PLT - PLATELET COUNT 255 10^3/uL (130-450); RED BLOOD COUNT 3.55 10^6/uL (4.20-5.40); RED CELL DISTRIBUTION WIDTH 13.6 % (12.0-15.0); WHITE BLOOD COUNT 10.7 x10^3/uL (4.8-10.8)
[2021-11-05] MEDS: SACCHAROMYCES BOULARDII 250 MG CAPSULE PO SCH (07:42)
--- NOTE | 2021-11-05 08:14 | Discharge Plan ---
Discharge Plan Problem Reviewed?: Yes Disposition: Home, Self Care Condition: Fair Prescriptions: Amox/Clav 875/125 [Augmentin 875/125 Tab] 1 tablet PO Q12H 10 Days #12 tablet oxyCODONE [Roxicodone] 5 mg PO Q4-6H #20 tablet Diet: Regular Activity Restrictions: No Restrictions Shower Restrictions: Yes (keep bandages dry) Driving Restrictions: Yes (no driving if has taken oxycodone) Instruction Topics: Ampicillin Sulbactam injection Health Concerns: You presented with a cracked tooth that happened a few days before admission and that then degenerated to having an infection in the tooth and then an infection in the soft tissues around your mouth. The infection coalesced to make an abscess in your neck. You required incision and debridement in the operating room under general anesthesia. Plan of Treatment: 1. Take antibiotics twice a day until you see the oral maxillofacial surgeon on November 10.The antibiotic is Augmentin. Make sure you have some food in your stomach when you take this antibiotic. 2. Because your antibiotics can give you diarrhea, Please take an kzoo-gpa-vgj nter probiotic twice a day for the next 10 days. 3. The bandages that are in the netting circling your neck can get dirty with leakage. Take the dirty bandages outside of the netting at least twice a day and replace them with clean bandages. You can wipe your neck with a warm washcloth to get it clean but keep your neck clean and dry. 4. Pain relief can be in the form of ssnd-vnu-ehrmkin Tylenol. Do not take more than 3000 mg a day. Ibuprofen is 200 mg tablets [id number]. You can take up to 3 ibuprofen tablets 3 times a day. Do not take that on an empty stomach. We have also prescribed oxycodone 5 mg. These are opioid drugs that can be quite sedated or constipating. Do not drive while using these medications and you can take an dqil-bcd-[id number] stool softener to avoid co nstipation. 5. Please see Dr. Barnett in his office Care Goals: To have complete resolution of your infection so that you do not need further surgery Assessment: Patient understands care goals and will follow through No Smoking: If you smoke, Please STOP! Call for help. Follow-up with: GOPI BARNETT [Physician No Access] -
[2021-11-05 10:38] VITALS: BP 128/72
--- NOTE | 2021-11-05 14:20 | DISCHARGE SUMMARY ---
"Discharge Summary Admit Date: 11/03/21 Discharge Date: 11/05/21 Discharging Provider: Dr. Denita Colón Code Status: Attempt Resuscitation Condition at Discharge: Good Discharge Disposition: 01 Home, Self Care - DIAGNOSES Discharge Diagnoses with Status of Each Condition: 1. Submandibular Abscess 2. Hyperglycemia - HPI History of Present Illness: A 36 year old patient with no significant medical history presents for facial swelling after a dental infection that began 6 days ago. The patient was eating when she felt her tooth crack (right lower molar, second from back). She was treated with antibiotics 4 days ago, but her face continued to swell. She reports swelling and pain that is worse on the right side and under her chin. She reports dysphagia, fever, chills, and cough due to throat irritation, with nausea and vomiting prior to the start of antibiotics. She has had a mostly liquid diet due to pain and difficulty swallowing and reports losing 7 lbs since the start of this event. She denies difficulty breathing. She has been using tylenol and ibuprofen for pain and fevers. History - Past Medical History Cardiovascular: reports: None Respiratory: reports: None Neuro: reports: None Endocrine/Autoimmune: reports: None GI: reports: None AUTH SPECIALIST: reports: Other () : reports: None HEENT: reports: None Psych: reports: None Musculoskeletal: reports: None Derm: reports: None - CONSULTS | PROCEDURES Consultations: Antonio Dawn DDS Procedures: 11/03 - CT neck w/ contrast: CT neck confirmed diagnosis of Noman's angina 11/04 - Incision and drainage of submandibular abscess - HOSPITAL COURSE Hospital Course: (1) Ludwigs angina Impression: Patient travelled to the OR for I&D of submandibular abscess on 11/04. The abscess was drained and a surgical drain was placed at the incision site. 30th tooth was extracted as it was the source of the initial infection. The patient was recovered in the PACU and transferred back to med/surg without complications. IV ampicillin-sulbactam was discontinued and PO Augmentin was started after procedure. The patient was discharged following surgical drain removal and education with clear follow up instructions on 11/05. (2) Blood glucose elevated Impression: Blood glucose was elevated during hospital stay, though A1c was 5.5%. Patient was encouraged to follow up with primary care for future monitoring. - ALLERGIES Allergies/Adverse Reactions: Allergies Allergy/AdvReac Type Severity Reaction Status Date / Time No Known Drug Allergies Allergy Verified 11/03/21 10:55 - MEDICATIONS Home Medications: Ambulatory Orders Medication Instructions Recorded Confirmed Acetaminophen [Tylenol] 650 mg PO Q4HR PRN tablet 11/05/21 Amox/Clav 875/125 [Augmentin 1 tablet PO Q12H 10 Days #12 tablet 11/05/21 875/125 Tab] Ibuprofen [Motrin] 600 mg PO Q6HR tablet 11/05/21 oxyCODONE [Roxicodone] 5 mg PO Q4-6H #20 tablet 11/05/21 - PHYSICAL EXAM AT DISCHARGE General Appearance: positive: No acute distress Neck: positive: No JVD, Trachea midline, Other Respiratory: positive: No respiratory distress Cardiovascular: negative: Tachycardia, Bradycardia, JVD present Skin: positive: Color nml, No rash, Warm, Dry. negative: Cyanosis, Diaphoresis, Pallor Neurologic/Psychiatric: positive: Oriented x3 - LABS Result Diagrams: 11/05/21 07:12 11/05/21 07:12 - DIAGNOSTIC IMAGING Diagnostic Imaging Results: Final report reviewed - SEPSIS Current Stage of Sepsis: Ruled out - FOLLOW UP Follow Up: Patient will continue course of PO Augmentin and follow up oral maxillofacial surgery on 11/10."
== END 2021-11-05 11:01 | disposition home or self-care (01) ==
LOC: ED 10:47 → MS2 17:13
PROVIDERS: ADMIT Specialist; ATTEND Specialist
DX: K12.2 Cellulitis and abscess of mouth (principal); K04.1 Necrosis of pulp; J39.1 Other abscess of pharynx; K04.7 Periapical abscess without sinus; E66.9 Obesity, unspecified; R73.9 Hyperglycemia, unspecified; Z20.822 Contact with and (suspected) exposure to COVID-19; Z68.32 Body mass index [BMI] 32.0-32.9, adult
CPT/HCPCS: 36415; 40801; 41018; 41800; 41899; 70491; 80048; 82803; 83036; 84703; 85025; 85610; 87635; 96365; 96366; 96367; 96375; 96376; 99281; 99285; A9270; G0378; J0131; J1170; J3490; J7120; Q9967